=== PATIENT | male | born 2005 | race Caucasian/White ===

== ENCOUNTER 2023-11-07 22:24 | Emergency (ER) | payer OTHER ==
[~2023-11-07] VITALS: Ht 190.5 cm; Wt 69.4 kg
[2023-11-07 22:38] VITALS: BP 142/84; PULSE 73; RESP 18; TEMP 98.1; O2SAT 97
[2023-11-07] MEDS ORDERED: BENTYL ONE (22:49)
[2023-11-07] MEDS: BENTYL LIQUID PO STA (22:55)
[2023-11-07 23:07] LABS: BASOPHIL % 0.1 % (0.0-0.2); EOSINOPHIL # 0.2 10^3/uL (0.0-0.2); EOSINOPHIL % 2.5 % (0.0-5.0); HEMATOCRIT(ML) 46.1 % (37.0-53.0); HEMOGLOBIN 15.9 g/dL (13.2-15.6); LYMPHOCYTES # 3.45 10^3/uL1 (1.2-5.2); LYMPHOCYTES % 40.7 % (24.0-44.0); MEAN CORP HGB CONCENTRATION 34.5 g/dL (33-36.5); MONOCYTES # 0.6 10^3/uL (0.0-0.4); MONOCYTES % 6.7 % (5.0-12.0); NEUTROPHIL # 4.2 10^3/uL (1.8-8.0); NEUTROPHILS % 49.9 % (41.0-85.0); PLATELET COUNT 290 10^3/uL (150-400); RED CELL DISTRIBUTION WIDTH 11.6 % (11.5-14.5); WHITE BLOOD CELL 8.5 10^3/uL (4.5-12.5)
[2023-11-07 23:13] LABS: BILIRUBIN,URINE NEGATIVE (NEGATIVE); LEUKOCYTE ESTERASE ,URINE NEGATIVE (NEGATIVE); NITRATE,URINE NEGATIVE (NEGATIVE); UROBILINOGEN,URINE 0.2 E.U./dL (0.2)
[2023-11-07 23:14] LABS: APPEARANCE,URINE CLEAR; UA COLOR YELLOW
[2023-11-07 23:16] LABS: +ADD MANUAL DIFF(NO CHRG) NO
[2023-11-07 23:25] LABS: ALANINE AMINOTRANSFERASE(ML) 23 U/L (12-78); ALBUMIN(ML) 4.6 g/dL (3.4-5.0); ALBUMIN/GLOBULIN RATIO 1.437; ALKALINE PHOSPHATASE 54 U/L (50-136); ANION GAP 14.1; ASPARTATE AMINO TRANSFERASE 17 U/L (0-35); CALCIUM 9.4 mg/dL (8.4-10.5); CARBON DIOXIDE 26.6 mmol/L (20.0-32); CREATININE SERUM 1.07 mg/dL (0.59-1.40); EST GFR, NON-AA 88.1 (>/=60); GLUCOSE 96 mg/dL (74-106); POTASSIUM 3.7 mmol/L (3.6-5.2); SODIUM 140 mmol/L (132-145)
[2023-11-07 23:26] LABS: C-REACTIVE PROTEIN < 0.05 mg/dL (0.00-5.00)
[2023-11-07 23:32] VITALS: BP 128/55; PULSE 62; RESP 18; TEMP 98.1; O2SAT 97
== END 2023-11-07 23:34 | disposition home or self-care (01) ==
LOC: ER 22:24
DX: K58.9 Irritable bowel syndrome, unspecified (principal)
CPT/HCPCS: 36415; 80053; 81003; 85025; 85651; 86140; 99283